=== PATIENT | male | born 1990 ===

== ENCOUNTER → 2024-12-25 06:07 | Day surgery (SDC) | payer SELFPAY ==
--- NOTE | 2024-12-24 16:34 | PTCARENOTE ---
During the phone interview pt states that has been recently treated for UTI with Bactrim and completed the course. Pt however still experiencing s/s of burning and pain upon the urination. Jennifer Ortega and [facility] are notified.
== END ==
LOC: SDS 06:07
PROVIDERS: ATTENDING PHYSICIAN Surgery
DX: K40.91 Unilateral inguinal hernia, without obstruction or gangrene, recurrent (principal); Z53.9 Procedure and treatment not carried out, unspecified reason
CPT/HCPCS: 49520